=== PATIENT | female | born 1955 | race Caucasian/White ===

== ENCOUNTER → 2023-12-21 06:26 | Day surgery (SDC) | payer MEDICARE, OTHER, SELFPAY | LOC: GI 06:26 | PROVIDERS: ATTENDING PHYSICIAN Internal Medicine Gastroenterology | DX: K64.8 Other hemorrhoids (principal); R93.3 Abnormal findings on diagnostic imaging of other parts of digestive tract; Q43.8 Other specified congenital malformations of intestine; K29.70 Gastritis, unspecified, without bleeding; K31.89 Other diseases of stomach and duodenum; K21.9 Gastro-esophageal reflux disease without esophagitis; K22.89 Other specified disease of esophagus; K44.9 Diaphragmatic hernia without obstruction or gangrene | CPT/HCPCS: 45380; 43239; 88305; 88342 ==

== ENCOUNTER → 2025-05-06 13:28 | Outpatient (REF) | payer OTHER, SELFPAY | LOC: REG 13:28 | PROVIDERS: ATTENDING PHYSICIAN Internal Medicine Gastroenterology; FAMILY PHYSICIAN Family Medicine | DX: R14.0 Abdominal distension (gaseous) (principal); K59.00 Constipation, unspecified | CPT/HCPCS: 74018 ==

== ENCOUNTER 2025-08-27 11:05 | Emergency (ER) | payer OTHER, SELFPAY ==
[2025-08-27 11:09] VITALS: BP 150/76
--- NOTE | 2025-08-27 11:53 | ED.GENMED ---
History of Present Illness
General
Chief Complaint: Musculo-Skeletal Complaint
Source: patient
Exam Limitations: none
Time Seen by Provider: 08/27/25 11:27
Nursing documentation reviewed up to this point in time: agreed with
History of Present Illness
History of Present Illness:
70-year-old right-handed female with a history of hypertension and hyperlipidemia presents to the ER for evaluation of left wrist injury. Patient was in the grocery store prior to arrival and tripped and fell forward onto her left hand
outstretched. Injured her left wrist. She did not hit her head, did not lose consciousness. Denies any headache, neck pain, back pain, rib pain or any other injuries. She is not on any blood thinners.
Past History
Past History
ED Past Medical History: HTN and Hypercholesterolemia
ED Past Surgical History: Orthopedic
Social History
Tobacco: Non-smoker
Review of Systems
Review of Systems
All Other Systems: ROS reviewed and negative except as documented in HPI and ROS
Musculoskeletal: Reports joint pain and joint swelling; Denies neck pain or back pain
Neurological: Denies headache
Phy Exam
Physical Exam
Physical Exam:
General: Awake, alert, oriented x3; no acute distress
Head: Normocephalic, atraumatic
Eyes: Conjunctiva normal
Throat: Airway intact, handling secretions
Neck: Trachea midline, supple without meningismus
Lungs: Breathing comfortably no distress
Heart: Regular rate
Neuro: Motor and sensory intact radial, median, ulnar nerve distribution left upper extremity
Skin: No lacerations or abrasions noted
Extremities: Patient has swelling and tenderness over the left wrist dorsally over the distal radius; limited range of motion in wrist due to pain; she does have strong left radial pulse; no tenderness of the left forearm, elbow, shoulder; rest
extremities are atraumatic
Scores
Heart Failure Risk
Heart Failure Risk Score: Not Applicable
Heart Score for Chest Pain Patients
STEMI patient?: Not applicable
Withdrawal Assessment of Alcohol
Withdrawal Assessment Completed?: Not applicable
Course
Orders/Labs/Results
Orders:
Orders
08/27/25 11:11
CR Wrist - Left Min 3 Views Urgent
Comment:
Reason For Exam: fall/pain
Vital Signs
Initial and Last Documented VS:
Initial Vital Signs
Temp Pulse Resp BP Pulse Ox
36.3 C 71 20 150/76 98
08/27/25 11:09 08/27/25 11:09 08/27/25 11:09 08/27/25 11:09 08/27/25 11:09
Last Documented Vital Signs
Temp Pulse Resp BP Pulse Ox
36.3 C 71 20 150/76 98
08/27/25 11:09 08/27/25 11:09 08/27/25 11:09 08/27/25 11:09 08/27/25 11:09
Procedures
Splinting/Sling Placement
Left Arm:
Procedure completed by: Gómez Carter MD
Pre-splint extermity exam: neurovascular intact
Type of splint: sugar-tong
Splint material: fiberglass
Splint checked by provider?: Yes
Type of sling: sling fitted
Normal distal neurovascular exam?: Yes
MDM/Problems Addressed
Differential Diagnosis Includes:
Fracture, sprain, contusion
MDM/Problems Addressed:
70-year-old female presents for fall on outstretched left hand complaining of left wrist pain. No other injuries noted. Neurovascular exam is intact. No breaks in the skin. X-ray reviewed shows fracture at the distal radius and ulna. Not
significantly angulated. Placed in a sugar-tong splint. Sling applied. Case discussed with orthopedic surgeon who will facilitate follow-up for outpatient management. Spoke with patient about pain control measures and follow-up plan. All
questions answered.
*Radiology
Radiology exam reviewed: preliminary read by ED provider
*Pulse Oximetry
SaO2: 98
Patient hypoxic: no (98%)
*Critical Care Note
Total Time (30-74mins, 75-104mins- exclusive of procedures): Not Applicable
Data Reviewed
Source: patient and spouse
Patient Management
Discussion with other providers: [employer] (Discussed with orthopedist)
ED Attending Note
-
Portions of this chart may have been created with voice recognition software.� Occasional wrong word or��sound alike� substitutions may have occurred due to the inherent limitations of voice recognition software.
Discharge Plan
Departure
Patient Disposition: Home (Routine Discharge)
Date of Disposition: 08/27/25
Time of Disposition: 11:57
Patient with high blood pressure during this ER visit?: Yes
Discharge Problem:
Fracture of left wrist
Instructions: Wrist Fracture (DC)
Prescriptions:
New
oxycodone 5 mg tablet
5 mg PO TID PRN (Reason: Pain) Qty: 10 0RF
Referrals:
Marv Bernstein MD [Active, Orthopedics] - Call in 1-3 days for appt
Referral Note: You should receive a call within the next 24 to 48 hours from the orthopedic office. If you do not receive a call you should call to schedule follow-up.
Santos Chase DO [Family Provider, Family Practice]
Activity Restrictions/Additional Instructions:
Thank you for visiting the Emergency Department at [facility].
1. Please schedule a follow up appointment as directed. Call first thing tomorrow morning to make an appointment.
2. If indicated, please take your medications as instructed and indicated on discharge paperwork.
3. If any of your symptoms do not improve, or persist, or become more severe within 6-12 hours, please return to the emergency department for further care.
4. Please return to the emergency department if you develop a headache, neck pain/stiffness, fever greater than 100.4F, chest pain, shortness of breath, persistent nausea, vomiting, slurred speech, difficulty walking, numbness/tingling, weakness,
signs of infection or any other symptoms that are worrisome to you.
Please call [phone] if you have any questions.
Interventions
Interventions:
*Risk Screen - Suicide Last Done: 08/27/25 11:09
*General Assessment Last Done: 08/27/25 11:09
*Neglect/Abuse Screening Last Done: 08/27/25 11:09
ED-Musculoskeletal Assessment Last Done: 08/27/25 11:20
Discharge Date and Time
Print Language: MAORI
[2025-08-27] MEDS: TORADOL 30 MG IM (12:07)
== END 2025-08-27 12:20 | disposition home or self-care (01) ==
LOC: EMR 11:05
PROVIDERS: EMERGENCY PHYSICIAN Emergency Medicine; FAMILY PHYSICIAN Family Medicine
DX: S52.572A Other intraarticular fracture of lower end of left radius, initial encounter for closed fracture (principal); W01.0XXA Fall on same level from slipping, tripping and stumbling without subsequent striking against object, initial encounter; I10 Essential (primary) hypertension; E78.00 Pure hypercholesterolemia, unspecified
CPT/HCPCS: 29125; 96372; 99284; 73110

== ENCOUNTER 2025-08-30 16:02 | Emergency (ER) | payer OTHER, SELFPAY ==
[2025-08-30 16:05] VITALS: BP 158/80
--- NOTE | 2025-08-30 18:07 | ED.GENMED ---
History of Present Illness
General
Chief Complaint: Musculo-Skeletal Complaint
Source: patient
Exam Limitations: none
Time Seen by Provider: 08/30/25 18:04
Nursing documentation reviewed up to this point in time: agreed with
History of Present Illness
History of Present Illness:
Patient is a 70-year-old female with past medical history hypertension hyperlipidemia presents to the ER for evaluation of left wrist pain. Patient was seen here several days ago August 27 and diagnosed with a fracture of the left distal ulna and
and radius. She had a splinted and she saw Dr. Bernstein on Monday, yesterday. Surgery is planned Monday. She complains however of increasing pain at the top portion of her splint. She complains of swelling to her fingers. Denies any discoloration
to her fingers.
Past History
Past History
ED Past Medical History: HTN and Hypercholesterolemia
ED Past Surgical History: Orthopedic
Social History
Tobacco: Non-smoker
Phy Exam
General Physical Exam
General Presentation: no apparent distress
General age: appears stated age
General Skin: warm and dry
General Habitus: normal
General Mental: alert
General Hydration: appears well hydrated
Neurological Exam
Neurological Exam: alert and oriented x3
Musculoskeletal Exam
Musculoskeletal Exam: other (Left upper extremity strong pulses splint was removed prior to my exam patient has good cap refill normal sensation fingers are mildly swollen there is slight ecchymosis to her wrist no skin breakdown or abrasions to
arm/wrist/hand or fingers )
Skin Exam
Skin Exam: normal color and warm/dry
Psychiatric Exam
Psychiatric Exam: normal mood/affect
Course
Orders/Labs/Results
Orders:
Orders
08/30/25 18:17
Splints/Slings/Crut- Treatment ONCE
Location: Left
Type of Splint: Volar
Vital Signs
Initial and Last Documented VS:
Initial Vital Signs
Temp Pulse Resp BP Pulse Ox
98.5 F 93 16 158/80 98
08/30/25 16:05 08/30/25 16:05 08/30/25 16:05 08/30/25 16:05 08/30/25 16:05
Last Documented Vital Signs
Temp Pulse Resp BP Pulse Ox
98.2 F 86 15 134/78 98
08/30/25 18:30 08/30/25 18:30 08/30/25 18:30 08/30/25 18:30 08/30/25 18:30
Procedures
Splint Check
Splint checked by provider?: Yes
Circulation/Movement/Sensation post splint application: brisk cap refill and full sensation
MDM/Problems Addressed
Differential Diagnosis Includes:
not limited to pain from splint
MDM/Problems Addressed:
Patient presents with complaints of finger swelling and discomfort at the top part of her splint. Again she was seen here 2 days ago diagnosed with a distal radius and ulnar fracture. She did see Ortho and she is scheduled to have surgery on
Monday. Splint was removed prior to my exam patient has mild swelling to the wrist normal cap refill normal sensation small amount of ecchymosis but no skin breakdown. Normal neurovascular exam. Symptoms likely from splint. Will DC with a plain
volar splint with ice elevation. She has pain medication at home along with Tylenol.
Pt feels much better in volar splint continues with nml neuro vascular exam
*Pulse Oximetry
SaO2: 98
Oxygen Mode of Delivery: Room air
Patient hypoxic: no
*Critical Care Note
Total Time (30-74mins, 75-104mins- exclusive of procedures): Not Applicable
Data Reviewed
Review of Other/Old Records Reveals: Radiology Studies and Other (previous ED chart )
ED Attending Note
-
Portions of this chart may have been created with voice recognition software.� Occasional wrong word or��sound alike� substitutions may have occurred due to the inherent limitations of voice recognition software.
Discharge Plan
Departure
Patient Disposition: Home (Routine Discharge)
Date of Disposition: 08/30/25
Time of Disposition: 18:19
Patient with high blood pressure during this ER visit?: Yes
Condition: Fair
Covid-19: Not Applicable
Discharge Problem:
Acute wrist pain, Fracture of wrist
Instructions: Wrist Fracture (DC), Splint Care
Prescriptions:
No Action
oxycodone-acetaminophen [Percocet] 5-325 mg tablet
1 tab PO Q6HPRN PRN (Reason: pain) Qty: 14 0RF
Referrals:
Marv Bernstein MD [Active, Orthopedics]
Santos Chase DO [Family Provider, Family Practice]
Activity Restrictions/Additional Instructions:
Follow-up with Dr. Bernstein as scheduled for surgery on Monday. Keep extremity elevated as much as possible and he may ice over the affected area take your previously prescribed pain medication and Tylenol as needed.
return if any worsening of symptoms continued pain cold numb or blue fingers
Interventions
Interventions:
*Risk Screen - Suicide Last Done: 08/30/25 16:05
*General Assessment Last Done: 08/30/25 16:05
*Neglect/Abuse Screening Last Done: 08/30/25 16:05
*ED- Fall Risk Assessment Last Done: 08/30/25 16:05
*ED COVID-19 Vaccine History Last Done: 08/30/25 16:05
*ED Influenza Vaccine History Last Done: 08/30/25 16:05
*Nursing Disposition Last Done: 08/30/25 18:56
ED-Musculoskeletal Assessment Last Done: 08/30/25 18:44
Discharge Date and Time
Discharge Date/Time: 08/30/25 18:56
Print Language: CROATIAN
[2025-08-30 18:30] VITALS: BP 134/78
== END 2025-08-30 18:56 | disposition home or self-care (01) ==
LOC: EMR 16:02
PROVIDERS: EMERGENCY PHYSICIAN Emergency Medicine; FAMILY PHYSICIAN Family Medicine
DX: S52.502A Unspecified fracture of the lower end of left radius, initial encounter for closed fracture (principal); S52.602A Unspecified fracture of lower end of left ulna, initial encounter for closed fracture; X58.XXXA Exposure to other specified factors, initial encounter; E78.00 Pure hypercholesterolemia, unspecified; I10 Essential (primary) hypertension
CPT/HCPCS: 29125; 99283